=== PATIENT | female | born 1985 | race Two or more races ===

== ENCOUNTER 2020-09-03 06:55 | Inpatient (IN) | payer MEDICAID ==
[~2020-09-03] VITALS: Ht 172.7 cm; Wt 81.6 kg
[2020-09-03] MEDS ORDERED: PHISODERM TOP SOLN 240ML BTL TOP PRN (07:45)
[2020-09-03] MEDS ORDERED: LIDOCAINE 2%HCL (LOCAL ANESTH.) INJ 20ML MDV IJ ONE (07:45)
[2020-09-03] MEDS ORDERED: PENICILLIN G POT 5MIL/D5 50ML 50 ML IV ONE (07:45)
[2020-09-03] MEDS ORDERED: WITCH HAZEL-GLYCERIN PAD TOP PRN (07:45)
[2020-09-03] MEDS ORDERED: BUTORPHANOL TARTRATE 2 MG/1 ML VIAL IV PRN (07:45)
[2020-09-03] MEDS ORDERED: LACTATED RINGER'S 1,000 ML IV SCH (07:45)
[2020-09-03] MEDS ORDERED: miSOPROStol 100 mcg TAB ONE (07:53)
[2020-09-03] MEDS ORDERED: METHYLERGONOVINE MALEATE 0.2 MG/ML AMP IM ONE (07:53)
[2020-09-03] MEDS ORDERED: LACT. RINGERS/OXYTOCIN 20UNITS 1,000 ML IV ONE ×2 (07:53→08:00)
[2020-09-03] MEDS ORDERED: LACT. RINGERS/OXYTOCIN 20UNITS 1,000 ML IV SCH (08:00)
[2020-09-03] MEDS ORDERED: TERBUTALINE SULFATE 1 MG/ML 1ML VIAL SC ONE (08:00)
[2020-09-03] MEDS: DERMOPLAST 60ML BOTTLE TOP PRN (08:18)
[2020-09-03 08:37] LABS: Basophils # (auto) 0 10 ^3/uL (0-0.2); Basophils % (auto) 0.2 % (0.0-2.0); Eosinophils # (auto) 0.1 10 ^3/uL (0-0.8); Eosinophils % (auto) 0.8 % (0.0-7.0); Hemoglobin 13.1 g/dL (12.2-16.2); Lymphocytes # (auto) 2.7 10 ^3/uL (0.4-5.4); Lymphocytes % (auto) 24.6 % (10.0-50.0); Mean Corpuscular Hemoglobin 32.6 pg (28.0-32.0); Mean Corpuscular Hgb Conc. 34.5 g/dL (32.0-36.0); Mean Corpuscular Volume 94.6 fL (80.0-100.0); Monocytes # (auto) 0.6 10 ^3/uL (0-1.3); Neutrophils # (auto) 7.4 10 ^3/uL (1.6-8.6); Neutrophils % (auto) 68.4 % (37.0-80.0); Nucleated Red Blood Cells % 0.1 %; Red Blood Cells 4.01 10^6/uL (4.0-5.20); Red Cell Distribution Width 14.7 % (11.8-14.3); White Blood Cell 10.8 10^3/uL (4.4-10.8)
[2020-09-03 08:37] LABS: Urine Bacteria NONE SEEN /hpf (None Seen); Urine Blood 3+ /uL (Negative); Urine Mucus FEW (None Seen); Urine Specific Gravity 1.021 (1.001-1.035); Urine WBC 77 /hpf (0 - 5)
[2020-09-03 08:48] LABS: Alcohol, Urine < 3.0 mg/dL (0-10); Amphetamine Screen, Urine NEGATIVE (NEGATIVE); Barbiturate Scree,Urine NEGATIVE (NEGATIVE); Benzodiazephine Screen, Urine NEGATIVE (NEGATIVE); Cannabinoid Screen, Urine NEGATIVE (NEGATIVE); Cocaine Screen, Urine NEGATIVE (NEGATIVE); Opiate Scree,Urine NEGATIVE (NEGATIVE); Phencyclidine Screen, Urine NEGATIVE (NEGATIVE)
[2020-09-03 09:02] LABS: Albumin 2.7 g/dL (3.4-5.0); Calcium 8.7 mg/dL (8.5-10.1); Potassium 3.9 mmol/L (3.5-5.1)
[2020-09-03 09:06] LABS: Bilirubin, Total 0.8 mg/dL (0.2-1.0); INR 0.93 (0.9-1.15); Partial Thromboplastin Time 27.9 sec (23.0-31.2)
[2020-09-03] MEDS: IBUPROFEN 600 MG TAB PO PRN ×4 (09:25→23:33)
[2020-09-03 10:25] VITALS: BP 121/75
[2020-09-03] MEDS ORDERED: PREN1TAB71 OR (12:23)
[2020-09-03 15:00] VITALS: BP 131/85
[2020-09-03 19:00] VITALS: BP 143/88
[2020-09-03 23:00] VITALS: BP 117/78
[2020-09-04 03:00] VITALS: BP 122/77
[2020-09-04] MEDS: IBUPROFEN 600 MG TAB PO PRN ×2 (03:58→07:21)
[2020-09-04 07:00] VITALS: BP 123/75
[2020-09-04 07:06] LABS: RPR Non Reactive (Non Reactive)
[2020-09-04] MEDS: DERMOPLAST 60ML BOTTLE TOP PRN (07:21)
[2020-09-04 11:00] VITALS: BP 118/78
== END 2020-09-04 13:05 | disposition home or self-care (01) | DRG 560 ==
LOC: LDRP 06:55 → OBSVTOIN 07:30
PROVIDERS: ADMIT Specialist; ATTEND Specialist
PROC: 10E0XZZ Delivery of Products of Conception, External Approach (ICD-10-PCS; principal; 2020-09-03)
DX: O80 Encounter for full-term uncomplicated delivery (principal); Z3A.39 39 weeks gestation of pregnancy; Z20.822 Contact with and (suspected) exposure to COVID-19; Z37.0 Single live birth
CPT/HCPCS: 36415; 59025; 59409; 80053; 80307; 81001; 81002; 85025; 85384; 85610; 85730; 86592; 86703; 86762; 86850; 86900; 86901; 87086; 87340; 87426; 96360; 96361; 96365; 96366; G0378; J2590

== ENCOUNTER 2021-09-05 20:26 | Emergency (ER) | payer MEDICAID ==
[~2021-09-05] VITALS: Ht 175.3 cm; Wt 71.2 kg
[~2021-09-05 20:26] MED LIST: PREN1TAB71 OR
[2021-09-05 20:27] VITALS: BP 118/80
[2021-09-05] MEDS ORDERED: NITROFURANTOIN 100 mg CAP PO ONE (21:00)
[2021-09-05] MEDS ORDERED: ONDANSETRON ODT 4 MG TAB PO ONE (21:00)
[2021-09-05 21:20] LABS: Urine Bacteria FEW /hpf (None Seen); Urine Blood Negative /uL (Negative); Urine Specific Gravity 1.004 (1.001-1.035); Urine WBC 1 /hpf (0 - 5)
[2021-09-05] MEDS ORDERED: NITR-87 PO (22:01)
== END 2021-09-05 22:08 | disposition home or self-care (01) ==
LOC: ER 20:30
DX: N39.0 Urinary tract infection, site not specified (principal); R11.2 Nausea with vomiting, unspecified; R19.7 Diarrhea, unspecified; Z79.899 Other long term (current) drug therapy
CPT/HCPCS: 81001; 81025; 99283; Q0162